=== PATIENT | female | born 1970 | race Caucasian/White ===

== ENCOUNTER 2023-01-31 12:21 | Emergency (ER) | payer OTHER, SELFPAY ==
--- NOTE | ~2023-01-31 | XR_ITS ---
EXAMINATION: XR RIBS, BILATERAL CLINICAL INFORMATION: Right lower rib pain following injury. COMPARISON: None available. TECHNIQUE: PA view the chest as well as 4 views of the bilateral ribs. FINDINGS: No airspace consolidation. No pleural effusion or pneumothorax. Unremarkable cardiomediastinal silhouette. No displaced rib fracture. No lytic or blastic osseous lesion. No abnormal soft tissue calcification. XR/XR ribs BI min 4V w CXR1V IMPRESSION: No displaced rib fracture.
[2023-01-31 12:24] VITALS: BP 159/71; PULSE 76; RESP 18; TEMP 36.6; O2SAT 98; BMI 25.1
--- NOTE | 2023-01-31 12:27 | ED_ITS ---
HPI - General Adult General Chief complaint: General Medical Stated complaint: ? R Rib Fx S/P Injury 01/30/23 Time Seen by Provider: 01/31/23 13:18 Source: patient Mode of arrival: ambulatory Limitations: no limitations History of Present Illness HPI narrative: Patient is 50-year-old female presenting to emergency department with complaint of right anterior rib pain. States that she was playing with her dog last night and rolled down a hill while her phone was in her pocket, then developed right anterior rib pain. Denies any shortness of breath, chest pain, palpitations. Has not taken any [id number] medications for her symptoms. complaint: Rib pain Onset (ago): hour(s) Location: chest Radiation: non-radiation Severity: moderate Quality: stabbing Pain Consistency: intermittent Relieving factors: rest Exacerbating factors: movement Associated symptoms: denies other symptoms Treatments prior to arrival: none Related Data Previous Rx's Medication Instructions Recorded ibuprofen 600 mg tablet 600 mg PO Q6H PRN pain #20 tabs 01/31/23 lidocaine 5 % topical patch 1 patch topical DAILY #15 ea 01/31/23 Allergies Allergy/AdvReac Type Severity Reaction Status Date / Time No Known Allergies Allergy Verified 01/31/23 12:24 Review of Systems Review of Systems: As per HPI. Yes all other systems are reviewed and are negative Constitutional: Constitutional: Reports as per HPI [facility] Social History Social History Advance Directives: Yes Advance Directives Information Provided: Yes Advance Directives on File: No Physical Exam ED Vital Signs: Vital Signs - 24 hr 01/31/23 12:24 Temperature 98 F Pulse Rate 76 Respiratory Rate 18 Blood Pressure 159/71 H Pulse Oximetry 98 BMI result Body Mass Index 25.1 Vital signs have been reviewed and appear to be correct. Blood pressure elevated. Heart rate normal. Respiratory rate normal. Temperature normal. Oxygen saturation normal. Const General: cooperative, healthy appearing and no acute distress Orientation/consciousness: oriented to person, oriented to place, oriented to time and patient oriented x3 Limitations: no limitations HENMT Head: Yes normocephalic and Yes atraumatic Ears: external ears normal General nose exam: Normal external nose present Face and sinus: Yes face symmetric Mouth: oropharynx normal and moist mucous membranes Throat: Yes uvula midline Eyes Pupils: Equal, round and reactive pupils present Neck Neck: Yes normal visual inspection and Yes supple Chest Other: no ecchymosis or erythema Chest palpation & inspection: normal inspection of the chest and tenderness rib right mid-clavicular line involving the 8th rib, involving the 9th rib and involving the 10th rib Resp Effort & Inspection: normal respiratory effort and able to speak in complete sentences Auscultation: clear to auscultation bilaterally Cardio Rate: regular rate Rhythm: regular rhythm Heart sounds: S1 normal heart sound present and S2 normal heart sound present GI Palpation (GI): Soft to palpation and nontender Auscultation: normoactive bowel sounds General: Yes no CVA tenderness Back/Spine/Pelvis Back: no CVA tenderness Skin General skin exam: elasticity normal and turgor normal Neuro General: oriented to person, oriented to place, oriented to time, patient oriented x3, moves all extremities, no focal motor deficits and CN's II-XI intact bilaterally Cranial nerves: Yes Equal, round and reactive pupils present Cognition (Neuro): normal cognition Extrem General: Yes full ROM, Yes no pedal edema and Yes no calf tenderness Psych Mental Status: mental status grossly normal Affect: normal affect Thought process: Normal thought process present Course Course Course Narrative: This is an RME: Additional HPI, ROS, PE not included below will be deferred to primary provider. This is a 52 yo female presenting with right sided rib pain after chest trauma last night. She was rolling on the grass with her dog when the phone in her pocket hit her rib cage. Plan - xr Medical Decision Making Medical Decision Making MDM Narrative: Patient is 50-year-old female presenting to emergency department with complaint of right anterior rib pain. On exam patient is awake, A+Ox3, VS WNL, afebrile, normal neurological exam without focal deficits, physical exam findings as above. Given reported symptoms and physical exam findings, initial differential includes contusion, fracture, pneumothorax. X-ray notable for no acute fractures or pneumothorax. My interpretation is in agreement with the radiologist's interpretation. Results discussed with patient and all questions answered. Will discharge home with prescription for lidocaine patches and ibuprofen. Instructed patient to follow-up with primary care provider. Return precautions discussed at bedside. Patient verbalized understanding of and agreement with plan. Differential Diagnosis Differential Diagnoses: The differential diagnosis associated with the presentation includes As per MDM. Independent Interpretation I performed an independent interpretation of an: Plain X-Ray Interpretation: No acute fractures or pneumothorax Radiology Impression Discussion of test interpretation with radiology: I have reviewed the radiologist's reading. Radiologist Impression: XR/XR ribs BI min 4V w CXR1V IMPRESSION: No displaced rib fracture. External Record Review External record reviewed: Inpatient record, Office record and Outpatient record Prescription Management I considered prescription management with: Pain Medication Discharge Plan Discharge Clinical Impression: Contusion of rib on right side Qualifiers: Encounter type: initial encounter Qualified Code(s): S20.211A - Contusion of right front wall of thorax, initial encounter Patient Disposition: Home, Self-Care Instructions: Rib Contusion (ED) Additional Instructions: You are being prescribed topical lidocaine patches which wear for up to 12 hours in a 24 hour period, do not apply heat directly over the patches. You are being prescribed 600 mg ibuprofen which you can take every 6 hours as needed for pain. You should apply ice to the affected area for 10-15 minutes at a time several times daily. Please follow-up with your primary care provider. Return to the emergency department if you develop worsening pain, shortness of breath, chest pain, palpitations or any other concerning symptoms. Prescriptions: New ibuprofen 600 mg tablet 600 mg PO Q6H PRN (Reason: pain) Qty: 20 0RF lidocaine 5 % adhesive patch,medicated 1 patch topical DAILY Qty: 15 0RF Rx Instructions: leave on most painful area for up to 12 hrs
== END 2023-01-31 14:15 | disposition home or self-care (01) ==
PROVIDERS: Emergency Provider Emergency Medicine; PCP Internal Medicine
DX: S20.211A Contusion of right front wall of thorax, initial encounter (principal); W17.81XA Fall down embankment (hill), initial encounter; Y93.89 Activity, other specified; Y92.828 Other wilderness area as the place of occurrence of the external cause; Y99.9 Unspecified external cause status
CPT/HCPCS: 71111; 99282; 99283